=== PATIENT | male | born 1975 | race Caucasian/White ===

== ENCOUNTER 2018-11-01 01:37 | Emergency (ER) | payer MEDICAID ==
[~2018-11-01] VITALS: Ht 180.3 cm; Wt 115.7 kg
--- NOTE | 2018-11-01 01:52 | NUR ---
Patient ambulated with stable gait. AAOx4. Speech is clear, speaks in complete sentences. No neuro deficits. Patient came in for c/o uncontrollable hiccuping. Respiratory even and unlabored, no sob, no cough. No cardiovascular distress, all pulses palpable. Patient in bed at lowest position. Side rails upx2. Call light within reach. Fall precautions implemented per protocol.
[2018-11-01 02:20] LABS: BASOPHILS % (AUTO) 0.4 % (0.0-2.0); EOSINOPHILS # (AUTO) 0.2 K/uL (0.0-0.7); HEMATOCRIT 38.8 % (36.7-47.1); HEMOGLOBIN 13.5 g/dL (12.5-16.3); LYMPHOCYTES # (AUTO) 2.1 K/uL (20.0-40.0); LYMPHOCYTES % (AUTO) 26.3 % (20.5-51.5); MEAN CORPUSCULAR HGB CONC 35 g/dL (32.5-36.3); MEAN CORPUSCULAR VOLUME 91.9 fL (73.0-96.2); MONOCYTES # (AUTO) 0.5 K/uL (2.0-10.0); MONOCYTES % (AUTO) 6.9 % (0.0-11.0); NEUTROPHILS % (AUTO) 64.4 % (38.5-71.5); PLATELET COUNT (AUTO) 180 K/uL (152-348); RED BLOOD CELL COUNT(AUTO) 4.22 MIL/uL (4.06-5.63); WHITE BLOOD COUNT (AUTO) 7.8 K/uL (3.6-10.2)
[2018-11-01] MEDS ORDERED: METOCLOPRAMIDE HCL 10 MG/2 ML VIAL ONE (02:22)
[2018-11-01] MEDS: IV NORMAL SALINE 1000 ML BAG IV ONE ×2 (02:23→02:44)
[2018-11-01] MEDS: METOCLOPRAMIDE HCL 10 MG/2 ML VIAL IV ONE (02:24)
[2018-11-01 02:34] LABS: BILIRUBIN,DIRECT 0.2 mg/dL (0.0-0.2); BILIRUBIN,TOTAL 0.3 mg/dL (0.2-1.0); TOTAL PROTEIN, SERUM 7.5 g/dL (6.4-8.2)
[2018-11-01] MEDS ORDERED: chlorproMAZINE 50 MG/2 ML AMPUL ONE (02:43)
[2018-11-01] MEDS: chlorproMAZINE 50 MG/2 ML AMPUL IV ONE (02:44)
[2018-11-01] MEDS ORDERED: chlorproMAZINE INJ 50 MG in IV NORMAL SALINE 50 ML IV ONE (02:45)
[2018-11-01] MEDS ORDERED: SWABABLE VALVE TRANSFER SET EA MC ONE (03:09)
[2018-11-01] MEDS ORDERED: IV NORMAL SALINE 250 ML IV ONE (03:10)
[2018-11-01] MEDS ORDERED: IOHEXOL 350 100 ML INFUS..BTL ONE (03:10)
--- NOTE | 2018-11-01 03:45 | NUR ---
Pt back from radiology dept back in room 02A. Pt appears in no apparent distress. Pt not hiccuping. Pending results.
[2018-11-01] MEDS: LORAZEPAM 2 MG/1 ML VIAL IV ONE (04:34)
[2018-11-01] MEDS ORDERED: HALOPERIDOL LACTATE 5 MG/1 ML VIAL ONE (04:36)
[2018-11-01] MEDS: HALOPERIDOL LACTATE 5 MG/1 ML VIAL IV ONE (04:41)
--- NOTE | 2018-11-01 04:59 | NUR ---
IV removed. Catheter intact and site benign. Pressure and 4x4 gauze applied to site. No bleeding noted.
--- NOTE | 2018-11-01 05:00 | NUR ---
Patient discharged to home in stable conditon. Written and verbal after care instructions given. Patient verbalizes understanding of instructions. Pt ambulated out of ER in stable gait w girlfriend who will drive home. All belongings w pt. VSS. NAD noted. Pt states he feels a lot better.
[2018-11-01 05:02] VITALS: BP 135/83
== END 2018-11-01 05:02 | disposition home or self-care (01) ==
LOC: ER 01:43
DX: R06.6 Hiccough (principal); R07.89 Other chest pain; R06.00 Dyspnea, unspecified; R11.10 Vomiting, unspecified; F17.290 Nicotine dependence, other tobacco product, uncomplicated
CPT/HCPCS: 36415; 71045; 71275; 74177; 80048; 80076; 83690; 84484; 85025; 85379; 93005; 96361; 96374; 96375; 99284; 99406; J1630; J2765; J3230; Q9967; 70030-TC; A4663; J7030; J7040; J7050